=== PATIENT | female | born 1990 | race Two or more races ===

== ENCOUNTER 2023-04-19 15:04 | Emergency (ER) | payer MEDICAID, OTHER ==
[~2023-04-19] VITALS: Ht 170.2 cm; Wt 115.0 kg
[2023-04-19] MEDS ORDERED: ACETAMINOPHEN 325 MG TAB PO ONE (16:15)
[2023-04-19] MEDS ORDERED: IBUPROFEN 800 MG TAB PO ONE (16:15)
[2023-04-19] MEDS ORDERED: CLINDAMYCIN 900MG IV 50 ML IV ONE (16:45)
[2023-04-19] MEDS ORDERED: MORPHINE SULFATE 4 MG/ML SYR/VIAL IV ONE (16:45)
[2023-04-19 16:51] LABS: Basophils # (auto) 0 10 ^3/uL (0-0.2); Basophils % (auto) 0.5 % (0.0-2.0); Eosinophils # (auto) 0.1 10 ^3/uL (0-0.8); Eosinophils % (auto) 0.8 % (0.0-7.0); Hematocrit 42.8 % (36.0-46.0); Hemoglobin 14.4 g/dL (12.2-16.2); Lymphocytes # (auto) 1.1 10 ^3/uL (0.4-5.4); Lymphocytes % (auto) 14.1 % (10.0-50.0); Mean Corpuscular Hgb Conc. 33.6 g/dL (32.0-36.0); Mean Corpuscular Volume 89.3 fL (80.0-100.0); Monocytes # (auto) 0.5 10 ^3/uL (0-1.3); Monocytes % (auto) 5.8 % (0.0-12.0); Neutrophils # (auto) 6.2 10 ^3/uL (1.6-8.6); Neutrophils % (auto) 78.8 % (37.0-80.0); Nucleated Red Blood Cells % 0.2 %; Red Cell Distribution Width 13.8 % (11.8-14.3); White Blood Cell 7.9 10^3/uL (4.4-10.8)
[2023-04-19 17:08] LABS: Albumin 3.5 g/dL (3.4-5.0); Calcium 8.6 mg/dL (8.5-10.1); Potassium 3.8 mmol/L (3.5-5.1)
[2023-04-19 17:11] LABS: BUN/Creatinine Ratio 13.8 (10.0-20.0); Bilirubin, Total 0.4 mg/dL (0.2-1.0); Total Protein 8.1 g/dL (6.4-8.2)
[2023-04-19 20:15] VITALS: PULSE 99; RESP 18; O2SAT 100
[2023-04-19] MEDS ORDERED: ONDANSETRON HCL 4 MG/2 ML VIAL IV ONE (20:30)
[2023-04-19] MEDS ORDERED: VANCOMYCIN 1GM/250ML 250 ML IV ONE (20:45)
[2023-04-19 21:45] VITALS: BP 131/67; PULSE 100; RESP 16; TEMP 99; O2SAT 96
== END 2023-04-19 23:28 | disposition short-term general hospital (02) ==
LOC: ER 15:04
DX: M27.2 Inflammatory conditions of jaws (principal); L02.11 Cutaneous abscess of neck; S00.86XA Insect bite (nonvenomous) of other part of head, initial encounter; R51.9 Headache, unspecified; Z90.710 Acquired absence of both cervix and uterus; W57.XXXA Bitten or stung by nonvenomous insect and other nonvenomous arthropods, initial encounter; Y93.89 Activity, other specified; Y92.89 Other specified places as the place of occurrence of the external cause; Y99.8 Other external cause status
CPT/HCPCS: 36415; 70486; 80053; 85025; 87040; 96365; 96375; 99285; J2270; J2405; J3370